=== PATIENT | female | born 1990 | race Caucasian/White ===

== ENCOUNTER 2019-04-23 07:44 | Emergency (ER) | payer OTHER ==
[~2019-04-23] VITALS: Ht 162.6 cm; Wt 72.0 kg
[2019-04-23 07:51] VITALS: BP 117/71
[2019-04-23] MEDS ORDERED: LIDOcaine 1% w/epiNEPHrine 1:200,000 30ml vial IM ONE (08:50)
== END 2019-04-23 09:36 | disposition home or self-care (01) ==
LOC: ER 07:44
DX: S90.851A Superficial foreign body, right foot, initial encounter (principal); W45.8XXA Other foreign body or object entering through skin, initial encounter; Y93.89 Activity, other specified; Y92.89 Other specified places as the place of occurrence of the external cause; Y99.8 Other external cause status
CPT/HCPCS: 10120; 99284

== ENCOUNTER 2019-05-14 12:42 | Outpatient (CLI) | payer OTHER ==
[2019-05-14 13:36] LABS: BASOPHILS % (AUTO) 0.2 % (0-1); EOSINOPHILS # (AUTO) 0.1 X10'3 (0-0.9); EOSINOPHILS % (AUTO) 0.5 % (0-6); HEMOGLOBIN 14.3 g/dl (12.0-16.0); LYMPHOCYTES # (AUTO) 1.9 X10'3 (1.1-4.8); LYMPHOCYTES % (AUTO) 15.2 % (21-51); MEAN CORPUSCULAR HEMOGLOBIN 29.4 PG (27.0-31.0); MEAN CORPUSCULAR HGB CONC 32.4 g/dL (33.0-36.5); MEAN CORPUSCULAR VOLUME 90.5 FL (78-98); MEAN PLATELET VOLUME 10.3 FL (7.4-10.4); MONOCYTES # (AUTO) 0.8 X10'3 (0-0.9); NEUTROPHILS # (AUTO) 9.8 X10'3 (1.8-7.7); NEUTROPHILS % (AUTO) 78.1 % (42-75); PLATELET COUNT 292 X10'3 (140-440); RED BLOOD COUNT 4.86 X10'6 (4.20-5.60); RED CELL DISTRIBUTION WIDTH 14.6 % (11.5-14.5); WHITE BLOOD COUNT 12.5 X10'3 (4.5-11.0)
[2019-05-14 14:01] LABS: ALANINE AMINOTRANSFERASE 25 U/L (12-78); ALBUMIN 3.9 G/DL (3.4-5.0); ALKALINE PHOSPHATASE 62 IU/L (46-116); ANION GAP 10 (8-16); ASPARTATE AMINO TRANSFERASE 17 U/L (10-37); BILIRUBIN,TOTAL 0.4 MG/DL (0.1-1.0); BLOOD UREA NITROGEN 16 MG/DL (7-18); BUN/CREATININE RATIO 15.8 (6.6-38.0); CALCIUM 9.1 MG/DL (8.5-10.1); CHLORIDE 106 MMOL/L (99-107); CHOL/HDL RATIO 2.8 (0.00-4.99); CHOLESTEROL 148 MG/DL (0-200); CREATININE 1.01 MG/DL (0.40-0.90); GLUCOSE 81 MG/DL (70-104); HDL CHOLESTEROL 53 MG/DL (35-60); LDL CHOLESTEROL 91 MG/DL (50-100); POTASSIUM 3.7 MMOL/L (3.5-5.1); SODIUM 142 MMOL/L (135-145); TOTAL CARBON DIOXIDE 26.2 MMOL/L (24-32); TRIGLYCERIDES 35 MG/DL (20-135); eGFR 64 ML/MIN
[2019-05-14 14:04] LABS: CLARITY,URINE CLEAR (Clear); COLOR,URINE YELLOW (Yellow); GLUCOSE, URINE NEGATIVE (Neg); KETONES,URINE NEGATIVE (Neg); LEUKOCYTE ESTERASE ,URINE NEGATIVE (Neg); NITRITES, URINE NEGATIVE (Neg); OCCULT BLOOD,URINE LARGE (Neg); PH,URINE 6.5 (4.8-8.0); PROTEIN,URINE NEGATIVE (Neg); UROBILINOGEN,URINE 0.2 E.U/dL (0.2-1.0)
[2019-05-14 14:07] LABS: UA COLLECTION TYPE CLN CATCH MIDSTREAM
[2019-05-14 14:16] LABS: MUCUS STRANDS MODERATE /LPF (Neg); SQUAMOUS EPITHELIAL CELL,UR MODERATE /LPF (FEW)
[2019-05-14 14:17] LABS: BACTERIA,URINE FEW /HPF (Neg); WBC,URINE 0-4 /HPF (0-4)
[2019-05-14 14:18] LABS: CAL OXALATE CRYSTALS FEW /HPF (NEGATIVE)
[2019-05-16 08:18] LABS: FSH, SERUM 5.3 mIU/mL (.); LUTEINIZING HORMONE 2.2 mIU/mL (.); PROGESTERONE 0.1 ng/mL (.)
[2019-05-18 06:28] LABS: TESTOSTERONE, FREE, DIRECT 1.8 pg/mL (0.0-4.2)
== END 2019-05-14 23:59 | disposition home or self-care (01) ==
LOC: LAB 12:42
PROVIDERS: ATTEND Family Medicine
DX: N94.10 Unspecified dyspareunia (principal); J45.909 Unspecified asthma, uncomplicated; R79.89 Other specified abnormal findings of blood chemistry; M26.69 Other specified disorders of temporomandibular joint; E78.5 Hyperlipidemia, unspecified; R53.83 Other fatigue; R07.9 Chest pain, unspecified
CPT/HCPCS: 36415; 80053; 80061; 81001; 83001; 83002; 84144; 84402; 84403; 84439; 84443; 85025

== ENCOUNTER 2019-05-20 15:06 | Outpatient (CLI) | payer OTHER ==
[2019-05-20 16:28] LABS: CLARITY,URINE CLEAR (Clear); COLOR,URINE STRAW (Yellow); GLUCOSE, URINE NEGATIVE (Neg); KETONES,URINE NEGATIVE (Neg); LEUKOCYTE ESTERASE ,URINE NEGATIVE (Neg); NITRITES, URINE NEGATIVE (Neg); OCCULT BLOOD,URINE NEGATIVE (Neg); PROTEIN,URINE NEGATIVE (Neg); UROBILINOGEN,URINE 0.2 E.U/dL (0.2-1.0)
[2019-05-20 16:29] LABS: UA COLLECTION TYPE CLN CATCH MIDSTREAM
[2019-05-20 16:33] LABS: BASOPHILS % (AUTO) 0.4 % (0-1); EOSINOPHILS # (AUTO) 0.1 X10'3 (0-0.9); EOSINOPHILS % (AUTO) 1.9 % (0-6); HEMATOCRIT 41.7 % (35.0-45.0); HEMOGLOBIN 13.9 g/dl (12.0-16.0); LYMPHOCYTES # (AUTO) 2.2 X10'3 (1.1-4.8); LYMPHOCYTES % (AUTO) 28.6 % (21-51); MEAN CORPUSCULAR HEMOGLOBIN 29.7 PG (27.0-31.0); MEAN CORPUSCULAR HGB CONC 33.2 g/dL (33.0-36.5); MEAN CORPUSCULAR VOLUME 89.4 FL (78-98); MEAN PLATELET VOLUME 10.2 FL (7.4-10.4); MONOCYTES # (AUTO) 0.6 X10'3 (0-0.9); MONOCYTES % (AUTO) 7.3 % (2-12); NEUTROPHILS # (AUTO) 4.7 X10'3 (1.8-7.7); NEUTROPHILS % (AUTO) 61.8 % (42-75); PLATELET COUNT 275 X10'3 (140-440); RED BLOOD COUNT 4.66 X10'6 (4.20-5.60); RED CELL DISTRIBUTION WIDTH 14.3 % (11.5-14.5); WHITE BLOOD COUNT 7.6 X10'3 (4.5-11.0)
[2019-05-20 16:57] LABS: ALANINE AMINOTRANSFERASE 25 U/L (12-78); ALBUMIN 3.7 G/DL (3.4-5.0); ALBUMIN/GLOBULIN RATIO 0.9 (1.1-1.5); ALKALINE PHOSPHATASE 73 IU/L (46-116); ANION GAP 8 (8-16); ASPARTATE AMINO TRANSFERASE 15 U/L (10-37); BILIRUBIN,TOTAL 0.2 MG/DL (0.1-1.0); BLOOD UREA NITROGEN 9 MG/DL (7-18); BUN/CREATININE RATIO 9.6 (6.6-38.0); CALCIUM 8.5 MG/DL (8.5-10.1); CHLORIDE 106 MMOL/L (99-107); CHOL/HDL RATIO 2.7 (0.00-4.99); CHOLESTEROL 130 MG/DL (0-200); CREATININE 0.94 MG/DL (0.40-0.90); GLUCOSE 73 MG/DL (70-104); HDL CHOLESTEROL 49 MG/DL (35-60); LDL CHOLESTEROL 79 MG/DL (50-100); POTASSIUM 3.7 MMOL/L (3.5-5.1); SODIUM 143 MMOL/L (135-145); TOTAL PROTEIN 7.6 G/DL (6.4-8.2); TRIGLYCERIDES 60 MG/DL (20-135); eGFR 69 ML/MIN
[2019-05-22 06:11] LABS: FSH, SERUM 4.8 mIU/mL (.); LUTEINIZING HORMONE 8.1 mIU/mL (.); PROGESTERONE <0.1 ng/mL (.)
[2019-05-23 19:38] LABS: TESTOSTERONE, FREE, DIRECT 1.3 pg/mL (0.0-4.2)
== END 2019-05-20 23:59 | disposition home or self-care (01) ==
LOC: LAB 15:06
PROVIDERS: ATTEND Family Medicine
DX: N94.10 Unspecified dyspareunia (principal); J45.909 Unspecified asthma, uncomplicated; R79.89 Other specified abnormal findings of blood chemistry; M26.69 Other specified disorders of temporomandibular joint; E78.5 Hyperlipidemia, unspecified; R53.83 Other fatigue; D72.829 Elevated white blood cell count, unspecified; R07.9 Chest pain, unspecified; Z82.49 Family history of ischemic heart disease and other diseases of the circulatory system
CPT/HCPCS: 36415; 80053; 80061; 81003; 83001; 83002; 84144; 84402; 84403; 84439; 84443; 85025

== ENCOUNTER 2019-09-09 06:02 | Day surgery (SDC) | payer OTHER ==
[2019-09-09] VITALS (8 sets, daily range): BP systolic 93–108; BP diastolic 44–77
[~2019-09-09] VITALS: Ht 162.6 cm; Wt 72.2 kg
[~2019-09-09 06:02] MED LIST: NO HOME MEDS; cefazolin/dext.iso 2gm/100ml 100 ML IV ONE; famotidine 10mg tablet PO ONE; ringers solution, lacted 1,000 ML IV SCH
[2019-09-09] MEDS ORDERED: ringers solution, lacted 1,000 ML IV SCH (07:38)
[2019-09-09] MEDS ORDERED: ondansetron/PF 4mg/2ml inj IV PRN (07:40)
[2019-09-09] MEDS ORDERED: morphine 4 MG/ML inj SYRINge IV PRN ×2 (07:40)
[2019-09-09] MEDS ORDERED: proCHLORperazine 10 MG/2 ml inj IV PRN (07:40)
[2019-09-09] MEDS ORDERED: meperidine/PF 25mg/ml syringe IV PRN ×3 (07:40)
[2019-09-09 08:15] LABS: BASOPHILS % (AUTO) 0.5 % (0-1); EOSINOPHILS # (AUTO) 0.1 X10'3 (0-0.9); EOSINOPHILS % (AUTO) 2.4 % (0-6); LYMPHOCYTES # (AUTO) 1.7 X10'3 (1.1-4.8); LYMPHOCYTES % (AUTO) 28.4 % (21-51); MEAN CORPUSCULAR HEMOGLOBIN 29.4 PG (27.0-31.0); MEAN CORPUSCULAR HGB CONC 33.4 g/dL (33.0-36.5); MEAN CORPUSCULAR VOLUME 88.1 FL (78-98); MEAN PLATELET VOLUME 9.5 FL (7.4-10.4); MONOCYTES # (AUTO) 0.6 X10'3 (0-0.9); MONOCYTES % (AUTO) 9.5 % (2-12); NEUTROPHILS # (AUTO) 3.5 X10'3 (1.8-7.7); NEUTROPHILS % (AUTO) 59.2 % (42-75); PRE OP HEMATOCRIT 40.6 % (35.0-45.0); PRE OP HEMOGLOBIN 13.5 g/dL (12.0-16.0); PRE OP PLATELET COUNT 249 X10'3 (140-440); RED BLOOD COUNT 4.61 X10'6 (4.20-5.60); RED CELL DISTRIBUTION WIDTH 13.9 % (11.5-14.5)
[2019-09-09 09:12] LABS: ALBUMIN 3.5 G/DL (3.4-5.0); ALBUMIN/GLOBULIN RATIO 0.9 (1.1-1.5); ALKALINE PHOSPHATASE 66 IU/L (46-116); BLOOD UREA NITROGEN 14 MG/DL (7-18); BUN/CREATININE RATIO 15.7 (6.6-38.0); CALCIUM 8.2 MG/DL (8.5-10.1); CHLORIDE 107 MMOL/L (99-107); CREATININE 0.89 MG/DL (0.40-0.90); PRE OP ALT 22 U/L (30-65); PRE OP ANION GAP 8 (8-16); PRE OP AST 18 U/L (10-37); PRE OP BILIRUB, TOTAL 0.3 MG/DL (0.0-1.0); PRE OP GLUCOSE 91 MG/DL (70-104); PRE OP POTASSIUM 3.8 MMOL/L (3.4-5.1); PRE OP SODIUM 142 MMOL/L (135-145); TOTAL PROTEIN 7.3 G/DL (6.4-8.2); eGFR 74 ML/MIN
[2019-09-09 09:24] LABS: HCG SERUM QL NEGATIVE
[2019-09-09] MEDS ORDERED: ondansetron/PF 4mg/2ml inj ONE (09:36)
[2019-09-09] MEDS ORDERED: BUPIVAcaine/PF 2.5 mg/ml (0.25%) 30ml vial ONE (09:36)
[2019-09-09] MEDS ORDERED: sevoflurane 250ml liquid IH ONE (09:36)
[2019-09-09] MEDS ORDERED: dexamethasone sod phosphate 10mg/ml inj ONE (09:36)
[2019-09-09] MEDS ORDERED: midazolam 2 mg/2 ml injection ONE (09:42)
[2019-09-09] MEDS ORDERED: fentaNYL/PF 50MCG/1 ML 2ML syringe ONE (09:42)
[2019-09-09] MEDS ORDERED: propofol inj 20 ML IV ONE (09:45)
--- NOTE | 2019-09-09 10:30 | NUR ---
Received from OR via BED, accompanied by Anesthesiologist DR VIRGEN-- and report given by Anesthesiolgist. PATIENT A&OX4, DENIES PAIN, V/S WNL, NEUROVASCULAR CHECKS INTACT, 20G PIV RUE, SCD ON, DRESSING LEFT SCAPULA CDI, LMA D/C ON ARRIVAL W/ NO COMPLICATIONS
--- NOTE | 2019-09-09 11:20 | NUR ---
PATIENT A&OX4, DENIES PAIN, V/S WNL, NEUROVASCULAR CHECKS INTACT, 20G PIV RUE D/C, SCD OFF, DRESSING LEFT SCAPULA CDI, [facility] [address]. I HAVE REVIEWED D/C INSTRUCTIONS WITH PATIENT AND FAMILY AND THEY HAVE VERBALIZED UNDERSTANDING. PATIENT D/C HOME WITH ALL BELONGINGS AND FAMILY GAVE TRANSPORT HOME.
== END 2019-09-09 11:20 | disposition home or self-care (01) ==
LOC: PAS 06:02
PROVIDERS: ATTEND Surgery
PROC: 0HB6XZZ Excision of Back Skin, External Approach (ICD-10-PCS; 2019-09-09)
PROC: 0HQ6XZZ Repair Back Skin, External Approach (ICD-10-PCS; principal; 2019-09-09 09:36)
DX: D17.1 Benign lipomatous neoplasm of skin and subcutaneous tissue of trunk (principal); R20.2 Paresthesia of skin; L90.5 Scar conditions and fibrosis of skin; L91.0 Hypertrophic scar
CPT/HCPCS: 11406; 12032; 36415; 80053; 84703; 85025; J1100; J2250; J2405; J2704; J3010; J3490; A4215; A4618; A6258; A7000; J7120

== ENCOUNTER 2019-11-02 12:36 | Outpatient (CLI) | payer OTHER ==
[~2019-11-02 12:36] MED LIST changes: -cefazolin/dext.iso 2gm/100ml 100 ML IV ONE; -famotidine 10mg tablet PO ONE; -ringers solution, lacted 1,000 ML IV SCH
[2019-11-02 14:06] LABS: ALANINE AMINOTRANSFERASE 16 U/L (12-78); ALBUMIN 3.9 G/DL (3.4-5.0); ALKALINE PHOSPHATASE 66 IU/L (46-116); ANION GAP 5 (8-16); ASPARTATE AMINO TRANSFERASE 14 U/L (10-37); BILIRUBIN,TOTAL 0.3 MG/DL (0.1-1.0); BLOOD UREA NITROGEN 11 MG/DL (7-18); BUN/CREATININE RATIO 11.6 (6.6-38.0); CHLORIDE 106 MMOL/L (99-107); CREATININE 0.95 MG/DL (0.40-0.90); GLUCOSE 80 MG/DL (70-104); POTASSIUM 3.6 MMOL/L (3.5-5.1); SODIUM 141 MMOL/L (135-145); TOTAL CARBON DIOXIDE 30.2 MMOL/L (24-32); eGFR 69 ML/MIN
[2019-11-04 07:10] LABS: FSH, SERUM 5.4 mIU/mL (.); LUTEINIZING HORMONE 2.2 mIU/mL (.); PROGESTERONE <0.1 ng/mL (.); PROLACTIN 8.4 ng/mL (4.8-23.3)
== END 2019-11-02 23:59 | disposition home or self-care (01) ==
LOC: LAB 12:36
PROVIDERS: ATTEND Family Medicine
DX: R79.89 Other specified abnormal findings of blood chemistry (principal); Z31.41 Encounter for fertility testing
CPT/HCPCS: 36415; 80053; 82670; 82679; 83001; 83002; 84144; 84146; 84402; 84439; 84443

== ENCOUNTER 2019-12-18 16:42 | Outpatient (CLI) | payer OTHER | END 2019-12-18 23:59 | disposition home or self-care (01) | LOC: RAD 16:42 | PROVIDERS: ATTEND Family Medicine | DX: M79.89 Other specified soft tissue disorders (principal) | CPT/HCPCS: 73610; 73630 ==

== ENCOUNTER → 2020-03-25 | Outpatient (CLI) | payer BC ==
[2020-03-25 06:23] LABS: BASOPHILS % (AUTO) 0.6 % (0-1); EOSINOPHILS # (AUTO) 0.1 X10'3 (0-0.9); EOSINOPHILS % (AUTO) 2.2 % (0-6); HEMOGLOBIN 14.4 g/dl (12.0-16.0); LYMPHOCYTES # (AUTO) 1.5 X10'3 (1.1-4.8); LYMPHOCYTES % (AUTO) 22.5 % (21-51); MEAN CORPUSCULAR HGB CONC 33.4 g/dL (33.0-36.5); MEAN CORPUSCULAR VOLUME 89.9 FL (78-98); MEAN PLATELET VOLUME 9.7 FL (7.4-10.4); MONOCYTES # (AUTO) 0.6 X10'3 (0-0.9); MONOCYTES % (AUTO) 8.5 % (2-12); NEUTROPHILS # (AUTO) 4.3 X10'3 (1.8-7.7); NEUTROPHILS % (AUTO) 66.2 % (42-75); PLATELET COUNT 268 X10'3 (140-440); RED BLOOD COUNT 4.78 X10'6 (4.20-5.60); RED CELL DISTRIBUTION WIDTH 13.7 % (11.5-14.5); WHITE BLOOD COUNT 6.5 X10'3 (4.5-11.0)
[2020-03-25 06:49] LABS: ALANINE AMINOTRANSFERASE 18 U/L (12-78); ALBUMIN 3.7 G/DL (3.4-5.0); ALBUMIN/GLOBULIN RATIO 0.9 (1.1-1.5); ALKALINE PHOSPHATASE 62 IU/L (46-116); ANION GAP 9 (8-16); ASPARTATE AMINO TRANSFERASE 15 U/L (10-37); BILIRUBIN,TOTAL 0.3 MG/DL (0.1-1.0); BLOOD UREA NITROGEN 13 MG/DL (7-18); BUN/CREATININE RATIO 13.5 (6.6-38.0); CALCIUM 8.6 MG/DL (8.5-10.1); CHLORIDE 103 MMOL/L (99-107); CREATININE 0.96 MG/DL (0.40-0.90); GLUCOSE 89 MG/DL (70-104); POTASSIUM 3.4 MMOL/L (3.5-5.1); SODIUM 138 MMOL/L (135-145); TOTAL CARBON DIOXIDE 25.6 MMOL/L (24-32); TOTAL PROTEIN 7.8 G/DL (6.4-8.2); eGFR 67 ML/MIN
== END | disposition home or self-care (01) ==
LOC: LAB 05:45
PROVIDERS: ATTEND Family Medicine
DX: R79.89 Other specified abnormal findings of blood chemistry (principal)
CPT/HCPCS: 36415; 80053; 85025

== ENCOUNTER 2020-04-13 09:20 | Outpatient (CLI) | payer BC ==
[2020-04-13 10:05] LABS: ALBUMIN 3.8 G/DL (3.4-5.0); ANION GAP 7 (8-16); BLOOD UREA NITROGEN 9 MG/DL (7-18); CALCIUM 9.3 MG/DL (8.5-10.1); CHLORIDE 100 MMOL/L (99-107); GLUCOSE 91 MG/DL (70-104); POTASSIUM 3.5 MMOL/L (3.5-5.1); SODIUM 139 MMOL/L (135-145); TOTAL CARBON DIOXIDE 31.7 MMOL/L (24-32); eGFR 73 ML/MIN
[2020-04-13 10:08] LABS: TOTAL PROTEIN,URINE RANDOM 7.5 MG/DL; UA PROTEIN/CREATININE RATIO 0.04 mg/mg Cr (0-0.16)
== END 2020-04-13 23:59 | disposition home or self-care (01) ==
LOC: LAB 09:20
PROVIDERS: ATTEND Family Medicine
DX: E87.6 Hypokalemia (principal); E83.51 Hypocalcemia; R79.89 Other specified abnormal findings of blood chemistry
CPT/HCPCS: 36415; 80048; 82570; 84156

== ENCOUNTER 2020-06-15 06:03 | Outpatient (CLI) | payer BC ==
[2020-06-15 07:08] LABS: ALBUMIN 3.5 G/DL (3.4-5.0); ANION GAP 6 (8-16); BLOOD UREA NITROGEN 12 MG/DL (7-18); BUN/CREATININE RATIO 13.6 (6.6-38.0); CALCIUM 8.4 MG/DL (8.5-10.1); CHLORIDE 105 MMOL/L (99-107); CREATININE 0.88 MG/DL (0.40-0.90); GLUCOSE 88 MG/DL (70-104); POTASSIUM 3.8 MMOL/L (3.5-5.1); SODIUM 138 MMOL/L (135-145); TOTAL CARBON DIOXIDE 27.4 MMOL/L (24-32); eGFR 74 ML/MIN
== END 2020-06-15 23:59 | disposition home or self-care (01) ==
LOC: LAB SPEC 06:03 → LAB 23:59
PROVIDERS: ATTEND Family Medicine
DX: N93.9 Abnormal uterine and vaginal bleeding, unspecified (principal); E87.6 Hypokalemia
CPT/HCPCS: 36415; 80048

== ENCOUNTER 2020-08-26 11:40 | Outpatient (CLI) | payer BC ==
[2020-08-26 12:35] LABS: ALBUMIN 3.6 G/DL (3.4-5.0); ANION GAP 7 (8-16); BLOOD UREA NITROGEN 11 MG/DL (7-18); BUN/CREATININE RATIO 13.3 (6.6-38.0); CALCIUM 8.5 MG/DL (8.5-10.1); CHLORIDE 104 MMOL/L (99-107); CREATININE 0.83 MG/DL (0.40-0.90); GLUCOSE 82 MG/DL (70-104); POTASSIUM 3.8 MMOL/L (3.5-5.1); SODIUM 141 MMOL/L (135-145); TOTAL CARBON DIOXIDE 30.1 MMOL/L (24-32); eGFR 80 ML/MIN
== END 2020-08-26 23:59 | disposition home or self-care (01) ==
LOC: RAD 11:40
DX: E83.51 Hypocalcemia (principal)
CPT/HCPCS: 36415; 80048; 82330; 82652; 83970

== ENCOUNTER 2020-10-03 08:39 | Outpatient (CLI) | payer BC | END 2020-10-03 23:59 | disposition home or self-care (01) | LOC: RAD 08:39 | PROVIDERS: ATTEND Family Medicine | DX: N28.9 Disorder of kidney and ureter, unspecified (principal); R79.89 Other specified abnormal findings of blood chemistry; E83.51 Hypocalcemia | CPT/HCPCS: 76775; 93975 ==

== ENCOUNTER 2020-12-08 05:50 | Day surgery (SDC) | payer OTHER, BC ==
[2020-12-07 12:01] LABS: BASOPHILS % (AUTO) 0.3 % (0-1); EOSINOPHILS # (AUTO) 0.1 X10'3 (0-0.9); EOSINOPHILS % (AUTO) 0.7 % (0-6); LYMPHOCYTES # (AUTO) 1.6 X10'3 (1.1-4.8); LYMPHOCYTES % (AUTO) 17.9 % (21-51); MEAN CORPUSCULAR HEMOGLOBIN 30.3 PG (27.0-31.0); MEAN CORPUSCULAR HGB CONC 33.1 g/dL (33.0-36.5); MEAN CORPUSCULAR VOLUME 91.5 FL (78-98); MEAN PLATELET VOLUME 11.2 FL (7.4-10.4); MONOCYTES # (AUTO) 0.5 X10'3 (0-0.9); MONOCYTES % (AUTO) 6.1 % (2-12); NEUTROPHILS # (AUTO) 6.6 X10'3 (1.8-7.7); PRE OP HEMATOCRIT 40.9 % (35.0-45.0); PRE OP HEMOGLOBIN 13.5 g/dL (12.0-16.0); PRE OP PLATELET COUNT 250 X10'3 (140-440); RED BLOOD COUNT 4.47 X10'6 (4.20-5.60); RED CELL DISTRIBUTION WIDTH 14.2 % (11.5-14.5)
[2020-12-07 12:11] LABS: HCG SERUM QL NEGATIVE
[2020-12-07 12:15] LABS: ALBUMIN 3.5 G/DL (3.4-5.0); ALBUMIN/GLOBULIN RATIO 0.8 (1.1-1.5); ALKALINE PHOSPHATASE 67 IU/L (46-116); BLOOD UREA NITROGEN 19 MG/DL (7-18); BUN/CREATININE RATIO 22.1 (6.6-38.0); CHLORIDE 105 MMOL/L (99-107); CREATININE 0.86 MG/DL (0.40-0.90); PRE OP ALT 25 U/L (30-65); PRE OP ANION GAP 9 (8-16); PRE OP AST 23 U/L (10-37); PRE OP BILIRUB, TOTAL 0.4 MG/DL (0.0-1.0); PRE OP GLUCOSE 64 MG/DL (70-104); PRE OP POTASSIUM 3.5 MMOL/L (3.4-5.1); PRE OP SODIUM 143 MMOL/L (135-145); TOTAL CARBON DIOXIDE 28.7 MMOL/L (24-32); TOTAL PROTEIN 7.9 G/DL (6.4-8.2); eGFR 76 ML/MIN
[2020-12-07 12:16] LABS: PRE OP PROTIME 10.3 SECONDS (9.0-12.0)
[2020-12-07 12:50] LABS: LARGE PLATELETS FEW; PLATELET ESTIMATE NORMAL
[~2020-12-08] VITALS: Ht 161.9 cm; Wt 65.4 kg
[2020-12-08] VITALS (12 sets, daily range): BP systolic 108–135; BP diastolic 66–99
[~2020-12-08 05:50] MED LIST changes: +ACET-1939 PO; +famotidine 20mg tablet PO ONE; +ringers solution, lacted 1,000 ML IV SCH
[2020-12-08] MEDS ORDERED: BUPIVAcaine 0.5% inj/PF 30 ML ONE (06:46)
[2020-12-08] MEDS ORDERED: methylene blue (5mg/ml) 50mg/10ml ampul IV ONE (07:12)
[2020-12-08] MEDS ORDERED: hydrALAZINE 20mg/ml inj. IV PRN (07:15)
[2020-12-08] MEDS ORDERED: morphine 4 MG/ML inj SYRINge IV PRN (07:15)
[2020-12-08] MEDS ORDERED: fentaNYL/PF 50MCG/1 ML 2ML syringe IV PRN ×2 (07:15)
[2020-12-08] MEDS ORDERED: morphine 2 MG/ML inj. syringe IV PRN (07:15)
[2020-12-08] MEDS ORDERED: ringers solution, lacted 1,000 ML IV SCH (07:15)
[2020-12-08] MEDS ORDERED: labetalol 20mg/4ml (5mg/ml) syringe IV PRN (07:15)
[2020-12-08] MEDS ORDERED: ondansetron/PF 4mg/2ml inj IV PRN (07:15)
[2020-12-08] MEDS ORDERED: morphine 10mg/ml inj. ONE ×2 (07:18)
[2020-12-08] MEDS ORDERED: midazolam 1 mg/ML 2ml injection ONE (07:18)
[2020-12-08] MEDS ORDERED: LIDOcaine 2% (20mg/ml) 5ml vial ONE (07:20)
[2020-12-08] MEDS ORDERED: ondansetron/PF 4mg/2ml inj ONE (07:21)
[2020-12-08] MEDS ORDERED: neostigmine methylsulfate 1 MG/ML 10ml vial ONE (07:21)
[2020-12-08] MEDS ORDERED: dexamethasone sod phosphate 4mg/ml inj. ONE (07:21)
[2020-12-08] MEDS ORDERED: glycopyrrolate 0.2mg/ml inj ONE (07:21)
[2020-12-08] MEDS ORDERED: propofol inj 20 ML IV ONE (07:21)
[2020-12-08] MEDS ORDERED: rocuronium 10mg/ml inj IV ONE ×2 (07:21→08:50)
[2020-12-08] MEDS ORDERED: sevoflurane 250ml liquid IH ONE (07:31)
[2020-12-08] MEDS ORDERED: meperidine/PF 25mg/ml syringe ONE (10:08)
--- NOTE | 2020-12-08 10:08 | NUR ---
Received from OR via yasmin, accompanied by Anesthesiologist Stefano and report given by Anesthesiolgist. VS WNL, pt responsive, lap sites x3 with steri strips CDI. Right wrist 20G IVF LR. Kiki pad scant drainage. Will monitor clsoely.
--- NOTE | 2020-12-08 10:10 | NUR ---
Dr Agarwal at bedside gave verbal order for demerol stat for severe shivering. Over ride medication performed per Dr Holland's request.
[2020-12-08] MEDS ORDERED: BUPIVAcaine 0.5% inj/PF 30 ml vial IJ ONE (10:15)
[2020-12-08] MEDS ORDERED: oxyCODONE/APAP 5-325mg tablet PO ONE ×3 (10:20→10:50)
[2020-12-08] MEDS ORDERED: meperidine/PF 25mg/ml syringe IV ONE (10:40)
--- NOTE | 2020-12-08 14:35 | NUR ---
RECEIVED REPORT FROM Parul TUCKER. PT. RETURNED TO [facility] FROM RECOVERY TO FINISH CARE. VSS. PT. RESTING IN [place]. LR RUNNING AT 500 ML/HR BOLUS INTO R. WRIST IV TO HELP WITH NEED TO URINATE. PT. IN HER CLOTHING. FLUIDS AT BEDSIDE, DENIES PAIN AND NAUSEA. ALERT AND ORIENTED. Addendum: 12/08/20 at 1643 by Jocelin Woody RN Amended: Links added.
--- NOTE | 2020-12-08 17:36 | NUR ---
PT. STILL UNABLE TO VOID. BLADDER SCANNER 251 ML NOTED. CALL TO MD. REQUESTS SANDHU CATHETER PLACEMENT UNTIL SATURDAY. PT. TO CALL MD SATURDAY AM TO PLAN FOR REMOVAL. SANDHU CATH PLACED. PT. TOLERATED WELL. AREA SORE AND TENDER WITH PLACEMENT. STAT LOCK PLACED. PT. EDUCATED RE: SANDHU CARE AND MAINTENANCE. PT. VERBALIZES UNDERSTANDING. AT BEDSIDE. VSS. MILD DISCOMFORT NOTED. ALL DC CRITERIA MET. IV CATH REMOVED. Addendum: 12/08/20 at 1747 by Jocelin Woody RN Amended: Links added.
--- NOTE | 2020-12-08 17:48 | NUR ---
PT. DISCHARGED VIA WC TO FRONT OF BUILDING ACCOMPANIED BY NURSE AND SPOUSE. VSS. DENIES PAIN. FC DRAINING TO GRAVITY. 500 ML CLEAR YELLOW URINE NOTED. PT. ABLE TO AMBULATE, AND DRINK FLUIDS. ALL DC CRITERIA MET. ALL BELONGINGS WITH PT. PT. UNDERSTANDS TO CALL SATURDAY FOR CATHETER REMOVAL. ALL QUESTIONS ANSWERED. Addendum: 12/08/20 at 1753 by Jocelin Woody RN Amended: Links added.
== END 2020-12-08 17:48 | disposition home or self-care (01) ==
LOC: PAS 05:50
PROVIDERS: ATTEND Obstetrics & Gynecology
DX: R10.2 Pelvic and perineal pain (principal); N94.6 Dysmenorrhea, unspecified; N83.291 Other ovarian cyst, right side; N73.6 Female pelvic peritoneal adhesions (postinfective); N80.3 Endometriosis of pelvic peritoneum; N80.1 Endometriosis of ovary; N83.12 Corpus luteum cyst of left ovary; J45.909 Unspecified asthma, uncomplicated; Z98.890 Other specified postprocedural states; Z87.440 Personal history of urinary (tract) infections; Z81.1 Family history of alcohol abuse and dependence; Z81.3 Family history of other psychoactive substance abuse and dependence; Z83.3 Family history of diabetes mellitus; Z83.6 Family history of other diseases of the respiratory system; Z82.49 Family history of ischemic heart disease and other diseases of the circulatory system; Z83.438 Family history of other disorder of lipoprotein metabolism and other lipidemia; Z81.8 Family history of other mental and behavioral disorders
CPT/HCPCS: 36415; 58350; 58558; 58662; 80053; 82948; 84703; 85025; 85610; 85730; 86885; 86900; 86901; 87426; C1758; J1100; J2001; J2175; J2250; J2270; J2405; J2704; J2710; J7030; J7120; Q9968; 85008; A4355; A4618; A6250; A6258; A7000; J3490

== ENCOUNTER 2021-04-17 12:13 | Outpatient (CLI) | payer BC ==
[~2021-04-17 12:13] MED LIST changes: -famotidine 20mg tablet PO ONE; -ringers solution, lacted 1,000 ML IV SCH
[2021-04-17 13:40] LABS: ALANINE AMINOTRANSFERASE 18 U/L (12-78); ALBUMIN 3.6 G/DL (3.4-5.0); ALBUMIN/GLOBULIN RATIO 0.9 (1.1-1.5); ALKALINE PHOSPHATASE 69 IU/L (46-116); ANION GAP 5 (8-16); ASPARTATE AMINO TRANSFERASE 16 U/L (10-37); BILIRUBIN,TOTAL 0.2 MG/DL (0.1-1.0); BLOOD UREA NITROGEN 17 MG/DL (7-18); BUN/CREATININE RATIO 20.5 (6.6-38.0); CALCIUM 8.4 MG/DL (8.5-10.1); CHLORIDE 108 MMOL/L (99-107); CREATININE 0.83 MG/DL (0.40-0.90); GLUCOSE 86 MG/DL (70-104); POTASSIUM 3.7 MMOL/L (3.5-5.1); SODIUM 142 MMOL/L (135-145); TOTAL CARBON DIOXIDE 28.7 MMOL/L (24-32); TOTAL PROTEIN 7.5 G/DL (6.4-8.2); eGFR 79 ML/MIN
== END 2021-04-17 23:59 | disposition home or self-care (01) ==
LOC: LAB 12:13
PROVIDERS: ATTEND Family Medicine
DX: R79.89 Other specified abnormal findings of blood chemistry (principal)
CPT/HCPCS: 36415; 80053

== ENCOUNTER 2021-07-21 14:50 | Emergency (ER) | payer BC ==
[~2021-07-21] VITALS: Ht 162.6 cm; Wt 65.5 kg
[2021-07-21 15:15] LABS: BASOPHILS % (AUTO) 0.4 % (0-1); EOSINOPHILS % (AUTO) 0.3 % (0-6); HEMATOCRIT 39.9 % (35.0-45.0); HEMOGLOBIN 13.2 g/dl (12.0-16.0); LYMPHOCYTES # (AUTO) 1.3 X10'3 (1.1-4.8); LYMPHOCYTES % (AUTO) 11.7 % (21-51); MEAN CORPUSCULAR HEMOGLOBIN 28.9 PG (27.0-31.0); MEAN CORPUSCULAR HGB CONC 33.1 g/dL (33.0-36.5); MEAN CORPUSCULAR VOLUME 87.5 FL (78-98); MONOCYTES # (AUTO) 1.3 X10'3 (0-0.9); MONOCYTES % (AUTO) 11.5 % (2-12); NEUTROPHILS # (AUTO) 8.6 X10'3 (1.8-7.7); NEUTROPHILS % (AUTO) 76.1 % (42-75); PLATELET COUNT 223 X10'3 (140-440); RED BLOOD COUNT 4.56 X10'6 (4.20-5.60); RED CELL DISTRIBUTION WIDTH 14.6 % (11.5-14.5); WHITE BLOOD COUNT 11.3 X10'3 (4.5-11.0)
[2021-07-21 15:32] LABS: ALANINE AMINOTRANSFERASE 16 U/L (12-78); ALBUMIN 3.4 G/DL (3.4-5.0); ALBUMIN/GLOBULIN RATIO 0.8 (1.1-1.5); ALKALINE PHOSPHATASE 52 IU/L (46-116); ANION GAP 11 (8-16); ASPARTATE AMINO TRANSFERASE 21 U/L (10-37); BILIRUBIN,TOTAL 0.8 MG/DL (0.1-1.0); BLOOD UREA NITROGEN 15 MG/DL (7-18); CALCIUM 8.5 MG/DL (8.5-10.1); CHLORIDE 96 MMOL/L (99-107); CREATININE 0.94 MG/DL (0.40-0.90); GLUCOSE 84 MG/DL (70-104); LIPASE 120 U/L (73-393); POTASSIUM 3.6 MMOL/L (3.5-5.1); SODIUM 135 MMOL/L (135-145); TOTAL CARBON DIOXIDE 28.4 MMOL/L (24-32); TOTAL PROTEIN 7.8 G/DL (6.4-8.2); eGFR 69 ML/MIN
[2021-07-21 16:41] LABS: HCG SERUM QL NEGATIVE
[2021-07-21 17:35] LABS: CLARITY,URINE CLEAR (Clear); COLOR,URINE YELLOW (Yellow); GLUCOSE, URINE NEGATIVE (Neg); KETONES,URINE >=80 mg/dl (Neg); LEUKOCYTE ESTERASE ,URINE NEGATIVE (Neg); NITRITES, URINE NEGATIVE (Neg); OCCULT BLOOD,URINE NEGATIVE (Neg); PH,URINE 6.5 (4.8-8.0); PROTEIN,URINE NEGATIVE (Neg); UROBILINOGEN,URINE 0.2 E.U/dL (0.2-1.0)
[2021-07-21 17:39] LABS: URINE HCG NEGATIVE (NEG)
[2021-07-21 17:44] LABS: UA COLLECTION TYPE CLN CATCH MIDSTREAM
[2021-07-21 18:00] VITALS: BP 101/67
[2021-07-21] MEDS ORDERED: FLUC150T22 PO (18:39)
== END 2021-07-24 10:29 | disposition home or self-care (01) ==
LOC: ER 14:50
DX: N83.202 Unspecified ovarian cyst, left side (principal); R10.32 Left lower quadrant pain; R11.2 Nausea with vomiting, unspecified; Z79.2 Long term (current) use of antibiotics; Z79.899 Other long term (current) drug therapy
CPT/HCPCS: 36415; 76830; 76856; 80053; 81003; 81025; 83690; 84703; 85025; 93976; 99284

== ENCOUNTER 2022-08-17 23:34 | Inpatient (IN) | payer BC ==
[~2022-08-17] VITALS: Ht 162.6 cm; Wt 72.1 kg
[2022-08-17 23:52] LABS: BASOPHILS % (AUTO) 0.2 % (0-1); EOSINOPHILS # (AUTO) 0.1 X10'3 (0-0.9); HEMATOCRIT 36.5 % (35.0-45.0); LYMPHOCYTES # (AUTO) 2.1 X10'3 (1.1-4.8); MEAN CORPUSCULAR HEMOGLOBIN 29.1 PG (27.0-31.0); MONOCYTES # (AUTO) 1.3 X10'3 (0-0.9); WHITE BLOOD COUNT 9.1 X10'3 (4.5-11.0)
[2022-08-17 23:56] LABS: EOSINOPHILS % (AUTO) 1.5 % (0-6); HEMOGLOBIN 11.9 g/dl (12.0-16.0); LYMPHOCYTES % (AUTO) 23.2 % (21-51); MEAN CORPUSCULAR HGB CONC 32.7 g/dL (33.0-36.5); MEAN PLATELET VOLUME 9.4 FL (7.4-10.4); MONOCYTES % (AUTO) 13.9 % (2-12); NEUTROPHILS # (AUTO) 5.5 X10'3 (1.8-7.7); NEUTROPHILS % (AUTO) 61.2 % (42-75); PLATELET COUNT 300 X10'3 (140-440); RED CELL DISTRIBUTION WIDTH 14.1 % (11.5-14.5)
[2022-08-18 00:10] LABS: ALANINE AMINOTRANSFERASE 17 U/L (12-78); ALBUMIN 2.8 G/DL (3.4-5.0); ALBUMIN/GLOBULIN RATIO 0.7 (1.1-1.5); ALKALINE PHOSPHATASE 60 IU/L (46-116); ANION GAP 7 (8-16); ASPARTATE AMINO TRANSFERASE 13 U/L (10-37); BILIRUBIN,TOTAL 0.3 MG/DL (0.1-1.0); BLOOD UREA NITROGEN 13 MG/DL (7-18); BUN/CREATININE RATIO 16.3 (6.6-38.0); CALCIUM 8.6 MG/DL (8.5-10.1); CHLORIDE 103 MMOL/L (99-107); GLUCOSE 102 MG/DL (70-104); MAGNESIUM 1.9 MG/DL (1.5-2.4); POTASSIUM 3.4 MMOL/L (3.5-5.1); SODIUM 139 MMOL/L (135-145); TOTAL CARBON DIOXIDE 28.9 MMOL/L (24-32); TOTAL PROTEIN 7.1 G/DL (6.4-8.2); eGFR 82 ML/MIN
[2022-08-18] MEDS ORDERED: aspirin 81mg tab.chew PO ONE (00:20)
--- NOTE | 2022-08-18 00:41 | NUR ---
INQUIRED WITH DR. JOHNSON REGARDING THE POSSIBILITY OF ORDERING A D-DIMER OR CTA TO R/O PE, NO NEW ORDERS
[2022-08-18] MEDS ORDERED: ondansetron/PF 4mg/2ml inj IV PRN (01:15)
[2022-08-18] MEDS ORDERED: potassium Cl 40MEQ/1/2NS 520ml 520 ML IV PRN (01:15)
[2022-08-18] MEDS ORDERED: magnesium 4gm in 100ml NS 100 ML IV PRN (01:15)
[2022-08-18] MEDS ORDERED: LORazepam 1 MG tablet PO ONE (01:15)
[2022-08-18] MEDS ORDERED: magnesium Cl slow-release 64mg tablet PO PRN (01:15)
[2022-08-18] MEDS ORDERED: acetaminophen 325mg tablet PO PRN (01:15)
[2022-08-18] MEDS ORDERED: magnesium hydroxide 30ml (MOM) UD suspension PO PRN (01:15)
[2022-08-18] MEDS ORDERED: PERFLUTREN PROTEIN-A MICROSPHR (Optison) 0.22 MG/ML 3ML VIAL IV ONE (01:15)
[2022-08-18] MEDS ORDERED: potassium Cl 20 mEq SR tablet PO PRN ×2 (01:15)
[2022-08-18] MEDS ORDERED: mag hydrox/Alum hydrox/simeth 30ml oral suspension PO PRN (01:15)
--- NOTE | 2022-08-18 01:24 | NUR ---
I agree with Janet Winston assessment.
[2022-08-18 01:34] LABS: APTT 29 SECONDS (22-32); D-DIMER 1.63 MG/L FEU (0-0.50)
[2022-08-18] MEDS ORDERED: iohexol 300mg/ml 100ml inj. ONE (01:50)
[2022-08-18] MEDS: normal saline 1000ml 1,000 ML IV SCH ×2 (02:07→11:47)
[2022-08-18 02:30] LABS: POTASSIUM 3.9 MMOL/L (3.5-5.1)
[2022-08-18] MEDS ORDERED: LORazepam 2 mg/ml vial IV ONE (02:30)
[2022-08-18] MEDS ORDERED: morphine 2 MG/ML inj. syringe IV ONE (03:00)
[2022-08-18] MEDS ORDERED: ondansetron/PF 4mg/2ml inj IV ONE (03:00)
[2022-08-18] MEDS ORDERED: ketorolac trometh. 30mg/ml inj. IV ONE (03:15)
--- NOTE | 2022-08-18 03:26 | NUR ---
MD JOHNSON AND SERGIO MADE AWARE NUMEROUS TIMES OVER THE TIME THE PATIENT HAS BEEN IN THE ED OF THE PATIENT'S LEVEL OF PANIC. MULTIPLE ORDERS FOR MEDICATIONS TO HELP WITH PAIN AND ANXIETY GIVEN. PARTNER IN ROOM IS CONCERNED FOR HER WELLING BEING. PLAN OF CARE AND VITAL SIGNS EXPLAINED TO BOTH PATIENT AND PARTNER.
[2022-08-18] MEDS ORDERED: morphine 4 MG/ML inj SYRINge IV ONE ×2 (05:30→13:10)
[2022-08-18] MEDS: heparin, porcine 5000 units/ml vial SQ SCH ×2 (07:38→20:00)
[2022-08-18] MEDS: docusate sod 100mg capsule PO SCH ×2 (07:38→20:58)
[2022-08-18] MEDS: K and/or MAG REPLACEMENT MC SCH ×2 (08:11→20:00)
--- NOTE | 2022-08-18 12:35 | NUR ---
PT IS REQUESTING MORE PAIN MEDS, NURSE MADE AWARE AND PAGED ADMIT DOCTOR
[2022-08-18] MEDS: HYDROcodone/acetaminophen 5mg/325mg tablet PO PRN (12:59)
[2022-08-18] MEDS ORDERED: normal saline 1000ML IV soln IVB ONE (14:45)
[2022-08-18] MEDS: ibuprofen tablet 400 MG TABLET PO SCH ×2 (16:00→20:58)
[2022-08-18] MEDS: colchicine 0.6mg tablet PO SCH (16:00)
[2022-08-18 16:15] LABS: C-REACTIVE PROTEIN 15.12 MG/DL (0.0-0.5)
[2022-08-18 18:00] VITALS: BP 102/72
--- NOTE | 2022-08-18 18:09 | NUR ---
Problems reprioritized. Patient report given, questions answered & plan of care reviewed with Willa SANTANA.
--- NOTE | 2022-08-18 18:11 | NUR ---
Patient in room PCU 3022. I have received report from Pearl SANTANA and had the opportunity to ask questions and assume patient care.
[2022-08-19] MEDS: HYDROcodone/acetaminophen 5mg/325mg tablet PO PRN ×3 (01:58→20:31)
[2022-08-19] MEDS: normal saline 1000ml 1,000 ML IV SCH ×2 (01:59→07:50)
[2022-08-19 02:00] VITALS: BP 102/64
[2022-08-19 06:13] LABS: BASOPHILS % (AUTO) 0.2 % (0-1); EOSINOPHILS % (AUTO) 0.3 % (0-6); HEMATOCRIT 34.4 % (35.0-45.0); HEMOGLOBIN 11.6 g/dl (12.0-16.0); LYMPHOCYTES # (AUTO) 1.3 X10'3 (1.1-4.8); MEAN CORPUSCULAR HEMOGLOBIN 29.9 PG (27.0-31.0); MEAN CORPUSCULAR HGB CONC 33.7 g/dL (33.0-36.5); MEAN CORPUSCULAR VOLUME 88.8 FL (78-98); MEAN PLATELET VOLUME 9.6 FL (7.4-10.4); MONOCYTES # (AUTO) 1.3 X10'3 (0-0.9); NEUTROPHILS # (AUTO) 10.5 X10'3 (1.8-7.7); NEUTROPHILS % (AUTO) 79.5 % (42-75); PLATELET COUNT 334 X10'3 (140-440); RED BLOOD COUNT 3.87 X10'6 (4.20-5.60); RED CELL DISTRIBUTION WIDTH 14.1 % (11.5-14.5); WHITE BLOOD COUNT 13.2 X10'3 (4.5-11.0)
[2022-08-19 06:18] LABS: ALANINE AMINOTRANSFERASE 108 U/L (12-78); ALBUMIN 2.4 G/DL (3.4-5.0); ALBUMIN/GLOBULIN RATIO 0.6 (1.1-1.5); ALKALINE PHOSPHATASE 94 IU/L (46-116); ANION GAP 6 (8-16); ASPARTATE AMINO TRANSFERASE 102 U/L (10-37); BILIRUBIN,TOTAL 0.6 MG/DL (0.1-1.0); BLOOD UREA NITROGEN 17 MG/DL (7-18); BUN/CREATININE RATIO 17.2 (6.6-38.0); CALCIUM 8.1 MG/DL (8.5-10.1); CHLORIDE 103 MMOL/L (99-107); CREATININE 0.99 MG/DL (0.40-0.90); GLUCOSE 118 MG/DL (70-104); POTASSIUM 4.2 MMOL/L (3.5-5.1); SODIUM 134 MMOL/L (135-145); TOTAL CARBON DIOXIDE 24.6 MMOL/L (24-32); TOTAL PROTEIN 6.5 G/DL (6.4-8.2); eGFR 64 ML/MIN
[2022-08-19 06:30] VITALS: BP 113/70
--- NOTE | 2022-08-19 06:32 | NUR ---
Patient in room PCU 3022. I have received report from Kaycee SANTANA and had the opportunity to ask questions and assume patient care. Pt is resting comfortably in bed. Pt on RA. No s/s of distress. Pt at bedside. No s/s of pain. BLL, call light within reach, frequently used items in reach, frequent rounding, disk recordist socks on. Will continue to monitor.
[2022-08-19] MEDS: heparin, porcine 5000 units/ml vial SQ SCH ×2 (08:00→20:00)
[2022-08-19] MEDS: K and/or MAG REPLACEMENT MC SCH ×2 (08:00→20:00)
--- NOTE | 2022-08-19 08:13 | NUR ---
Problems reprioritized. Patient report given, questions answered & plan of care reviewed with Carolina SANTANA.
[2022-08-19] MEDS: colchicine 0.6mg tablet PO SCH ×2 (08:36→20:19)
[2022-08-19] MEDS: ibuprofen tablet 400 MG TABLET PO SCH ×3 (08:36→20:21)
[2022-08-19] MEDS: docusate sod 100mg capsule PO SCH ×2 (08:36→20:19)
[2022-08-19 11:30] VITALS: BP 96/56
--- NOTE | 2022-08-19 12:15 | NUR ---
Message: Estefania Blunt 3024: Asking for TUMS. -[place] [id number] [phone]
[2022-08-19 18:00] VITALS: BP 104/63
--- NOTE | 2022-08-19 18:59 | NUR ---
Problems reprioritized. Patient report given, questions answered & plan of care reviewed with Ashley SANTANA.
[2022-08-19] MEDS ORDERED: ipratropium/albuterol 3ml nebule NEB PRN (20:10)
[2022-08-19] MEDS: sennosides/docusate sodium tablet PO SCH (20:19)
[2022-08-19] MEDS: calcium carbonate 500mg chew tablet PO SCH (20:20)
[2022-08-19] MEDS ORDERED: ibuprofen 200mg tablet PO ONE (20:29)
[2022-08-19 22:00] VITALS: BP 94/49
[2022-08-20 01:57] VITALS: BP 91/63
[2022-08-20] MEDS: HYDROcodone/acetaminophen 5mg/325mg tablet PO PRN ×4 (02:29→22:17)
[2022-08-20 06:00] VITALS: BP 107/66
[2022-08-20 06:49] LABS: BASOPHILS % (AUTO) 0.2 % (0-1); EOSINOPHILS # (AUTO) 0.1 X10'3 (0-0.9); EOSINOPHILS % (AUTO) 0.5 % (0-6); HEMATOCRIT 32.5 % (35.0-45.0); LYMPHOCYTES # (AUTO) 1.1 X10'3 (1.1-4.8); LYMPHOCYTES % (AUTO) 10.9 % (21-51); MEAN CORPUSCULAR HEMOGLOBIN 29.7 PG (27.0-31.0); MEAN CORPUSCULAR HGB CONC 33.8 g/dL (33.0-36.5); MEAN PLATELET VOLUME 9.6 FL (7.4-10.4); MONOCYTES % (AUTO) 9.6 % (2-12); NEUTROPHILS # (AUTO) 8.3 X10'3 (1.8-7.7); NEUTROPHILS % (AUTO) 78.8 % (42-75); PLATELET COUNT 344 X10'3 (140-440); RED BLOOD COUNT 3.69 X10'6 (4.20-5.60); RED CELL DISTRIBUTION WIDTH 14.3 % (11.5-14.5); WHITE BLOOD COUNT 10.5 X10'3 (4.5-11.0)
[2022-08-20 07:36] LABS: ALANINE AMINOTRANSFERASE 249 U/L (12-78); ALBUMIN 2.3 G/DL (3.4-5.0); ALBUMIN/GLOBULIN RATIO 0.5 (1.1-1.5); ALKALINE PHOSPHATASE 161 IU/L (46-116); ANION GAP 8 (8-16); ASPARTATE AMINO TRANSFERASE 167 U/L (10-37); BILIRUBIN,TOTAL 0.5 MG/DL (0.1-1.0); BLOOD UREA NITROGEN 18 MG/DL (7-18); BUN/CREATININE RATIO 20.9 (6.6-38.0); CALCIUM 8.3 MG/DL (8.5-10.1); CHLORIDE 102 MMOL/L (99-107); CREATININE 0.86 MG/DL (0.40-0.90); GLUCOSE 101 MG/DL (70-104); POTASSIUM 4.3 MMOL/L (3.5-5.1); SODIUM 133 MMOL/L (135-145); TOTAL CARBON DIOXIDE 23.3 MMOL/L (24-32); TOTAL PROTEIN 6.5 G/DL (6.4-8.2); eGFR 76 ML/MIN
[2022-08-20] MEDS: K and/or MAG REPLACEMENT MC SCH ×2 (08:00→20:00)
[2022-08-20] MEDS: heparin, porcine 5000 units/ml vial SQ SCH ×2 (08:00→20:00)
[2022-08-20] MEDS: calcium carbonate 500mg chew tablet PO SCH ×3 (08:40→17:46)
[2022-08-20] MEDS: docusate sod 100mg capsule PO SCH ×2 (08:40→19:59)
[2022-08-20] MEDS: sennosides/docusate sodium tablet PO SCH ×2 (08:40→19:59)
[2022-08-20] MEDS: colchicine 0.6mg tablet PO SCH ×2 (09:10→19:59)
--- NOTE | 2022-08-20 09:49 | NUR ---
Paged Echo 3015A. 3022. limited echos - orders in. 3015A: check for Left atrial clot, 3022: assess pericardial effusion. Thx.
[2022-08-20 11:29] VITALS: BP 104/57
[2022-08-20] MEDS ORDERED: LORazepam 1 MG tablet PO PRN (12:00)
[2022-08-20] MEDS: ibuprofen 200mg tablet PO SCH ×2 (12:25→20:10)
[2022-08-20] MEDS ORDERED: bisacodyl 10mg suppository rectal RC PRN (13:00)
[2022-08-20 16:12] VITALS: BP 100/52
[2022-08-20 18:30] VITALS: BP 102/68
[2022-08-20] MEDS ORDERED: LORazepam 0.5 MG tablet PO PRN ×2 (20:00→21:25)
[2022-08-20] MEDS ORDERED: LORazepam 0.5 MG tablet PO ONE (21:25)
[2022-08-20 22:00] VITALS: BP 118/76
[2022-08-21 02:30] VITALS: BP 106/76
[2022-08-21] MEDS: HYDROcodone/acetaminophen 5mg/325mg tablet PO PRN ×2 (05:55→12:44)
[2022-08-21 07:00] VITALS: BP 101/60
[2022-08-21 07:50] LABS: BASOPHILS % (AUTO) 0.4 % (0-1); EOSINOPHILS # (AUTO) 0.1 X10'3 (0-0.9); EOSINOPHILS % (AUTO) 1.5 % (0-6); HEMATOCRIT 31.4 % (35.0-45.0); HEMOGLOBIN 10.5 g/dl (12.0-16.0); LYMPHOCYTES % (AUTO) 12.3 % (21-51); MEAN CORPUSCULAR HEMOGLOBIN 29.6 PG (27.0-31.0); MEAN CORPUSCULAR HGB CONC 33.5 g/dL (33.0-36.5); MEAN CORPUSCULAR VOLUME 88.4 FL (78-98); MEAN PLATELET VOLUME 9.3 FL (7.4-10.4); MONOCYTES # (AUTO) 0.9 X10'3 (0-0.9); MONOCYTES % (AUTO) 10.9 % (2-12); NEUTROPHILS # (AUTO) 6.3 X10'3 (1.8-7.7); NEUTROPHILS % (AUTO) 74.9 % (42-75); PLATELET COUNT 332 X10'3 (140-440); RED BLOOD COUNT 3.56 X10'6 (4.20-5.60); RED CELL DISTRIBUTION WIDTH 14.2 % (11.5-14.5); WHITE BLOOD COUNT 8.4 X10'3 (4.5-11.0)
[2022-08-21] MEDS: heparin, porcine 5000 units/ml vial SQ SCH (08:00)
[2022-08-21] MEDS: K and/or MAG REPLACEMENT MC SCH (08:00)
[2022-08-21 08:05] LABS: ALBUMIN 2.3 G/DL (3.4-5.0); ALBUMIN/GLOBULIN RATIO 0.5 (1.1-1.5); ALKALINE PHOSPHATASE 152 IU/L (46-116); ANION GAP 7 (8-16); ASPARTATE AMINO TRANSFERASE 80 U/L (10-37); BILIRUBIN,TOTAL 0.4 MG/DL (0.1-1.0); BLOOD UREA NITROGEN 14 MG/DL (7-18); BUN/CREATININE RATIO 16.7 (6.6-38.0); CALCIUM 8.1 MG/DL (8.5-10.1); CHLORIDE 101 MMOL/L (99-107); CREATININE 0.84 MG/DL (0.40-0.90); GLUCOSE 97 MG/DL (70-104); MAGNESIUM 2.4 MG/DL (1.5-2.4); PHOSPHORUS 2.8 MG/DL (2.3-4.5); SODIUM 134 MMOL/L (135-145); TOTAL CARBON DIOXIDE 26.2 MMOL/L (24-32); TOTAL PROTEIN 6.7 G/DL (6.4-8.2); eGFR 78 ML/MIN
[2022-08-21 08:06] LABS: ALANINE AMINOTRANSFERASE 194 U/L (12-78)
[2022-08-21] MEDS: docusate sod 100mg capsule PO SCH (08:09)
[2022-08-21] MEDS: calcium carbonate 500mg chew tablet PO SCH ×2 (08:09→12:41)
[2022-08-21] MEDS: sennosides/docusate sodium tablet PO SCH (08:10)
[2022-08-21] MEDS: colchicine 0.6mg tablet PO SCH (08:12)
[2022-08-21] MEDS: ibuprofen 200mg tablet PO SCH ×2 (08:12→12:42)
[2022-08-21 11:00] VITALS: BP 92/51
[2022-08-21] MEDS ORDERED: IBUP-1594 PO (11:01)
[2022-08-21] MEDS ORDERED: COL0.6T PO (11:01)
--- NOTE | 2022-08-21 12:54 | NUR ---
Paged Dr Message: [phone]. Merlene. Pending ativan on d/c ppwk please. Julieta Angela [phone] Transaction number: [id number]
[2022-08-21] MEDS ORDERED: LORA-269 PO (12:55)
--- NOTE | 2022-08-21 14:23 | NUR ---
Patient was given education and reviewed discharge paperwork and new home medications, answered all questions. D/C'd patients telemetry monitoring and PIV in Left AC. Patient and gathered all of patient belongings and wheeled down to private vehicle to home.
--- NOTE | 2022-08-21 17:30 | NUR ---
Problems reprioritized. Patient report given, questions answered & plan of care reviewed with MAX Lezama.
== END 2022-08-21 13:34 | disposition home or self-care (01) | DRG 281 ==
LOC: ER 23:35 → EEVIPCON 08-18 01:22 → ED HOLD 08-18 01:22 → EDBEDREQ 08-18 05:29 → PCU 3S 08-18 16:50 → INTOOBSV 08-19 16:20 → OBSVTOIN 08-19 16:20
PROVIDERS: ADMIT Internal Medicine; ATTEND Family Medicine
PROC: B32T1ZZ Computerized Tomography (CT Scan) of Left Pulmonary Artery using Low Osmolar Contrast (ICD-10-PCS; principal; 2022-08-18)
PROC: B3201ZZ Computerized Tomography (CT Scan) of Thoracic Aorta using Low Osmolar Contrast (ICD-10-PCS; 2022-08-18)
PROC: B32S1ZZ Computerized Tomography (CT Scan) of Right Pulmonary Artery using Low Osmolar Contrast (ICD-10-PCS; 2022-08-18)
DX: I30.1 Infective pericarditis (principal); I21.A1 Myocardial infarction type 2; J90 Pleural effusion, not elsewhere classified; R65.10 Systemic inflammatory response syndrome (SIRS) of non-infectious origin without acute organ dysfunction; R18.8 Other ascites; Z20.822 Contact with and (suspected) exposure to COVID-19; I31.39 Other pericardial effusion (noninflammatory); F41.9 Anxiety disorder, unspecified; R79.82 Elevated C-reactive protein (CRP); D72.821 Monocytosis (symptomatic); N97.9 Female infertility, unspecified; J45.990 Exercise induced bronchospasm; E28.2 Polycystic ovarian syndrome; R79.89 Other specified abnormal findings of blood chemistry; Z80.0 Family history of malignant neoplasm of digestive organs; Z81.8 Family history of other mental and behavioral disorders; Z82.49 Family history of ischemic heart disease and other diseases of the circulatory system; Z83.3 Family history of diabetes mellitus; Z79.899 Other long term (current) drug therapy
CPT/HCPCS: 36415; 71045; 71046; 71275; 76700; 80053; 83735; 83880; 84100; 84132; 84145; 84484; 85025; 85379; 85610; 85651; 85730; 86038; 86140; 87081; 87502; 87503; 87811; 93306; 94640; 94760; 96374; 96375; 96376; 99285; G0378; J1644; J1885; J2060; J2270; J2405; J3490; J7030; Q9967

== ENCOUNTER 2022-08-26 14:50 | Emergency (ER) | payer BC ==
[~2022-08-26] VITALS: Ht 162.6 cm; Wt 67.0 kg
[~2022-08-26 14:50] MED LIST changes: -ACET-1939 PO; +COL0.6T PO; +IBUP-1594 PO; +LORA-269 PO; -NO HOME MEDS
[2022-08-26 15:00] VITALS: BP 116/69
[2022-08-26 15:22] LABS: EOSINOPHILS # (AUTO) 0.3 X10'3 (0-0.9); MEAN PLATELET VOLUME 8.1 FL (7.4-10.4); MONOCYTES # (AUTO) 0.9 X10'3 (0-0.9)
[2022-08-26 15:24] LABS: BASOPHILS % (AUTO) 0.4 % (0-1); EOSINOPHILS % (AUTO) 2.4 % (0-6); HEMATOCRIT 37.3 % (35.0-45.0); HEMOGLOBIN 12.4 g/dl (12.0-16.0); LYMPHOCYTES # (AUTO) 2.5 X10'3 (1.1-4.8); LYMPHOCYTES % (AUTO) 19.3 % (21-51); MEAN CORPUSCULAR HEMOGLOBIN 28.9 PG (27.0-31.0); MEAN CORPUSCULAR HGB CONC 33.3 g/dL (33.0-36.5); MEAN CORPUSCULAR VOLUME 86.7 FL (78-98); MONOCYTES % (AUTO) 6.6 % (2-12); NEUTROPHILS # (AUTO) 9.2 X10'3 (1.8-7.7); NEUTROPHILS % (AUTO) 71.3 % (42-75); PLATELET COUNT 625 X10'3 (140-440); RED CELL DISTRIBUTION WIDTH 14.3 % (11.5-14.5); WHITE BLOOD COUNT 12.9 X10'3 (4.5-11.0)
[2022-08-26 15:34] LABS: ALANINE AMINOTRANSFERASE 80 U/L (12-78); ALBUMIN 2.9 G/DL (3.4-5.0); ALBUMIN/GLOBULIN RATIO 0.6 (1.1-1.5); ALKALINE PHOSPHATASE 117 IU/L (46-116); ANION GAP 7 (8-16); ASPARTATE AMINO TRANSFERASE 36 U/L (10-37); BILIRUBIN,TOTAL 0.2 MG/DL (0.1-1.0); BLOOD UREA NITROGEN 18 MG/DL (7-18); BUN/CREATININE RATIO 15.1 (6.6-38.0); CALCIUM 8.5 MG/DL (8.5-10.1); CHLORIDE 103 MMOL/L (99-107); CREATININE 1.19 MG/DL (0.40-0.90); GLUCOSE 79 MG/DL (70-104); MAGNESIUM 1.8 MG/DL (1.5-2.4); POTASSIUM 3.5 MMOL/L (3.5-5.1); SODIUM 139 MMOL/L (135-145); TOTAL CARBON DIOXIDE 29.4 MMOL/L (24-32); TOTAL PROTEIN 7.7 G/DL (6.4-8.2); eGFR 52 ML/MIN
[2022-08-26] MEDS ORDERED: ibuprofen 200mg tablet PO ONE (15:49)
[2022-08-26] MEDS ORDERED: ibuprofen tablet 400 MG TABLET PO ONE (15:50)
--- NOTE | 2022-08-26 16:40 | NUR ---
ECHO AT BEDSIDE
[2022-08-26] MEDS ORDERED: POTA20PA31 PO (17:36)
== END 2022-08-26 17:42 | disposition home or self-care (01) ==
LOC: ER 14:50
DX: R07.9 Chest pain, unspecified (principal); Z20.822 Contact with and (suspected) exposure to COVID-19; I30.9 Acute pericarditis, unspecified; J45.909 Unspecified asthma, uncomplicated; Z79.899 Other long term (current) drug therapy
CPT/HCPCS: 71045; 80053; 83735; 83880; 84484; 85025; 87635; 93005; 93308; 99285; C9803

== ENCOUNTER → 2022-08-27 | Outpatient (CLI) | payer BC ==
[~2022-08-27] MED LIST changes: +POTA20PA31 PO
[2022-08-27 10:29] LABS: RHEUM FACTOR QUAL REFLEX TITER NEGATIVE (Neg)
== END | disposition home or self-care (01) ==
LOC: LAB 08:14
PROVIDERS: ATTEND Family Medicine
DX: I31.9 Disease of pericardium, unspecified (principal); R60.9 Edema, unspecified
CPT/HCPCS: 36415; 84550; 85651; 86038; 86430

== ENCOUNTER → 2022-08-27 | Outpatient (CLI) | payer BC ==
[2022-08-27 09:41] LABS: ALBUMIN 3.3 G/DL (3.4-5.0); ANION GAP 9 (8-16); BLOOD UREA NITROGEN 17 MG/DL (7-18); C-REACTIVE PROTEIN 10.09 MG/DL (0.0-0.5); CHLORIDE 103 MMOL/L (99-107); GLUCOSE 93 MG/DL (70-104); POTASSIUM 3.9 MMOL/L (3.5-5.1); SODIUM 139 MMOL/L (135-145); TOTAL CARBON DIOXIDE 26.8 MMOL/L (24-32); eGFR 63 ML/MIN
== END | disposition home or self-care (01) ==
LOC: LAB 08:43
PROVIDERS: ATTEND Internal Medicine Interventional Cardiology
DX: I31.9 Disease of pericardium, unspecified (principal); R60.9 Edema, unspecified
CPT/HCPCS: 36415; 80048; 84484; 86140

== ENCOUNTER → 2022-09-03 | Outpatient (CLI) | payer BC ==
[2022-09-03 11:56] LABS: ALBUMIN 3.2 G/DL (3.4-5.0); BLOOD UREA NITROGEN 17 MG/DL (7-18); BUN/CREATININE RATIO 18.5 (6.6-38.0); CALCIUM 8.8 MG/DL (8.5-10.1); CREATININE 0.92 MG/DL (0.40-0.90); GLUCOSE 80 MG/DL (70-104); eGFR 70 ML/MIN
[2022-09-03 13:40] LABS: CHLORIDE 106 MMOL/L (99-107)
[2022-09-03 14:00] LABS: ANION GAP 8 (8-16); C-REACTIVE PROTEIN 1.05 MG/DL (0.0-0.5); POTASSIUM 4.1 MMOL/L (3.5-5.1); SODIUM 141 MMOL/L (135-145)
== END | disposition home or self-care (01) ==
LOC: LAB 09:31
PROVIDERS: ATTEND Internal Medicine Interventional Cardiology
DX: I31.9 Disease of pericardium, unspecified (principal)
CPT/HCPCS: 36415; 80048; 84484; 86140

== ENCOUNTER 2022-09-22 06:46 | Emergency (ER) | payer SELFPAY ==
[~2022-09-22] VITALS: Ht 162.6 cm; Wt 69.1 kg
[2022-09-22 07:31] LABS: BASOPHILS % (AUTO) 0.2 % (0-1); EOSINOPHILS # (AUTO) 0.2 X10'3 (0-0.9); EOSINOPHILS % (AUTO) 1.5 % (0-6); HEMATOCRIT 35.8 % (35.0-45.0); HEMOGLOBIN 11.5 g/dl (12.0-16.0); LYMPHOCYTES # (AUTO) 1.9 X10'3 (1.1-4.8); LYMPHOCYTES % (AUTO) 16.9 % (21-51); MEAN CORPUSCULAR HEMOGLOBIN 28.1 PG (27.0-31.0); MEAN CORPUSCULAR HGB CONC 32.2 g/dL (33.0-36.5); MEAN CORPUSCULAR VOLUME 87.1 FL (78-98); MEAN PLATELET VOLUME 9.9 FL (7.4-10.4); MONOCYTES # (AUTO) 1.1 X10'3 (0-0.9); MONOCYTES % (AUTO) 9.8 % (2-12); NEUTROPHILS # (AUTO) 8.1 X10'3 (1.8-7.7); NEUTROPHILS % (AUTO) 71.6 % (42-75); PLATELET COUNT 244 X10'3 (140-440); RED BLOOD COUNT 4.11 X10'6 (4.20-5.60); RED CELL DISTRIBUTION WIDTH 15.2 % (11.5-14.5); WHITE BLOOD COUNT 11.3 X10'3 (4.5-11.0)
[2022-09-22 07:43] LABS: ALANINE AMINOTRANSFERASE 38 U/L (12-78); ALBUMIN 3.1 G/DL (3.4-5.0); ALBUMIN/GLOBULIN RATIO 0.7 (1.1-1.5); ALKALINE PHOSPHATASE 77 IU/L (46-116); ANION GAP 2 (8-16); ASPARTATE AMINO TRANSFERASE 19 U/L (10-37); BILIRUBIN,TOTAL 0.3 MG/DL (0.1-1.0); BLOOD UREA NITROGEN 22 MG/DL (7-18); BUN/CREATININE RATIO 31.4 (6.6-38.0); CALCIUM 8.8 MG/DL (8.5-10.1); CHLORIDE 103 MMOL/L (99-107); GLUCOSE 93 MG/DL (70-104); POTASSIUM 4.1 MMOL/L (3.5-5.1); SODIUM 135 MMOL/L (135-145); TOTAL CARBON DIOXIDE 30.1 MMOL/L (24-32); TOTAL PROTEIN 7.6 G/DL (6.4-8.2); eGFR > 90 ML/MIN
[2022-09-22 07:51] LABS: MAGNESIUM 2.1 MG/DL (1.5-2.4)
[2022-09-22] MEDS ORDERED: ibuprofen 200mg tablet PO ONE (08:10)
[2022-09-22] MEDS ORDERED: HYDROcodone/acetaminophen 5mg/325mg tablet PO ONE (08:10)
[2022-09-22 09:33] LABS: C-REACTIVE PROTEIN 21.85 MG/DL (0.0-0.5)
[2022-09-22] MEDS ORDERED: normal saline 1000ML IV soln IVB ONE (12:50)
[2022-09-22 13:38] VITALS: BP 94/56
== END 2022-09-22 13:42 | disposition home or self-care (01) ==
LOC: ER 06:47
DX: I31.9 Disease of pericardium, unspecified (principal); J45.909 Unspecified asthma, uncomplicated; Z79.899 Other long term (current) drug therapy
CPT/HCPCS: 36415; 71045; 80053; 83735; 83880; 84145; 84484; 85025; 85651; 86140; 93005; 93308; 99285; J7040

== ENCOUNTER 2022-10-04 03:19 | Outpatient (CLI) | payer BC | END 2022-10-04 23:59 | disposition home or self-care (01) | LOC: LAB 03:19 | PROVIDERS: ATTEND Family Medicine | DX: I31.9 Disease of pericardium, unspecified (principal) | CPT/HCPCS: 36415; 84443 ==

== ENCOUNTER 2022-10-29 07:23 | Outpatient (CLI) | payer BC ==
[2022-10-29 07:54] LABS: BASOPHILS % (AUTO) 0.4 % (0-1); EOSINOPHILS # (AUTO) 0.3 X10'3 (0-0.9); EOSINOPHILS % (AUTO) 3.6 % (0-6); HEMATOCRIT 41.1 % (35.0-45.0); HEMOGLOBIN 13.1 g/dl (12.0-16.0); LYMPHOCYTES # (AUTO) 1.9 X10'3 (1.1-4.8); LYMPHOCYTES % (AUTO) 26.2 % (21-51); MEAN CORPUSCULAR HEMOGLOBIN 28.1 PG (27.0-31.0); MEAN CORPUSCULAR HGB CONC 31.9 g/dL (33.0-36.5); MEAN PLATELET VOLUME 9.7 FL (7.4-10.4); MONOCYTES # (AUTO) 0.7 X10'3 (0-0.9); MONOCYTES % (AUTO) 10.2 % (2-12); NEUTROPHILS # (AUTO) 4.3 X10'3 (1.8-7.7); NEUTROPHILS % (AUTO) 59.6 % (42-75); PLATELET COUNT 212 X10'3 (140-440); RED BLOOD COUNT 4.68 X10'6 (4.20-5.60); RED CELL DISTRIBUTION WIDTH 17.1 % (11.5-14.5); WHITE BLOOD COUNT 7.2 X10'3 (4.5-11.0)
[2022-10-29 08:09] LABS: C-REACTIVE PROTEIN 0.42 MG/DL (0.0-0.5)
== END 2022-10-29 23:59 | disposition home or self-care (01) ==
LOC: LAB 07:23
PROVIDERS: ATTEND Family Medicine
DX: I31.9 Disease of pericardium, unspecified (principal)
CPT/HCPCS: 36415; 83880; 85025; 85651; 86140

== ENCOUNTER 2023-01-04 04:07 | Outpatient (CLI) | payer BC | END 2023-01-04 23:59 | disposition home or self-care (01) | LOC: LAB 04:07 | PROVIDERS: ATTEND Obstetrics & Gynecology | DX: N91.4 Secondary oligomenorrhea (principal) | CPT/HCPCS: 36415; 84144 ==

== ENCOUNTER 2023-02-22 05:17 | Emergency (ER) | payer BC ==
[~2023-02-22] VITALS: Ht 162.6 cm; Wt 68.2 kg
[2023-02-22 06:00] LABS: BASOPHILS % (AUTO) 0.6 % (0-1); EOSINOPHILS # (AUTO) 0.2 X10'3 (0-0.9); EOSINOPHILS % (AUTO) 3.5 % (0-6); HEMATOCRIT 39.8 % (35.0-45.0); HEMOGLOBIN 13.2 g/dl (12.0-16.0); LYMPHOCYTES # (AUTO) 2.2 X10'3 (1.1-4.8); LYMPHOCYTES % (AUTO) 34.4 % (21-51); MEAN CORPUSCULAR HEMOGLOBIN 28.4 PG (27.0-31.0); MEAN PLATELET VOLUME 9.2 FL (7.4-10.4); MONOCYTES # (AUTO) 0.7 X10'3 (0-0.9); NEUTROPHILS # (AUTO) 3.4 X10'3 (1.8-7.7); NEUTROPHILS % (AUTO) 51.5 % (42-75); PLATELET COUNT 326 X10'3 (140-440); RED BLOOD COUNT 4.63 X10'6 (4.20-5.60); RED CELL DISTRIBUTION WIDTH 15.2 % (11.5-14.5); WHITE BLOOD COUNT 6.5 X10'3 (4.5-11.0)
[2023-02-22 06:20] LABS: ALANINE AMINOTRANSFERASE 24 U/L (12-78); ALBUMIN 3.2 G/DL (3.4-5.0); ALBUMIN/GLOBULIN RATIO 0.8 (1.1-1.5); ANION GAP 9 (8-16); ASPARTATE AMINO TRANSFERASE 20 U/L (10-37); BILIRUBIN,TOTAL 0.3 MG/DL (0.1-1.0); BLOOD UREA NITROGEN 14 MG/DL (7-18); BUN/CREATININE RATIO 16.5 (10.0-20.0); CALCIUM 8.7 MG/DL (8.5-10.1); CHLORIDE 103 MMOL/L (99-107); CREATININE 0.85 MG/DL (0.40-0.90); GLUCOSE 87 MG/DL (70-104); POTASSIUM 3.5 MMOL/L (3.5-5.1); SODIUM 141 MMOL/L (135-145); TOTAL CARBON DIOXIDE 29.4 MMOL/L (24-32); TOTAL PROTEIN 7.2 G/DL (6.4-8.2); eGFR 76 ML/MIN
[2023-02-22 06:42] LABS: ALKALINE PHOSPHATASE 88 IU/L (46-116)
[2023-02-22 08:13] VITALS: BP 101/54
== END 2023-02-22 08:15 | disposition home or self-care (01) ==
LOC: ER 05:18
DX: R07.89 Other chest pain (principal); J45.909 Unspecified asthma, uncomplicated; Z98.890 Other specified postprocedural states; Z79.899 Other long term (current) drug therapy
CPT/HCPCS: 36415; 71045; 80053; 83880; 84484; 85025; 93005; 99285

== ENCOUNTER 2023-05-06 00:15 | Outpatient (CLI) | payer BC | END 2023-05-06 23:59 | disposition home or self-care (01) | LOC: LAB 00:15 | PROVIDERS: ATTEND Obstetrics & Gynecology | DX: N97.9 Female infertility, unspecified (principal) | CPT/HCPCS: 36415; 84144 ==

== ENCOUNTER 2023-06-01 14:03 | Outpatient (CLI) | payer BC | END 2023-06-01 23:59 | disposition home or self-care (01) | LOC: LAB 14:03 | PROVIDERS: ATTEND Obstetrics & Gynecology | DX: N97.9 Female infertility, unspecified (principal) | CPT/HCPCS: 36415; 84144 ==